=== PATIENT | female | born 2000 | race African-American/Black ===

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

== ENCOUNTER 2020-03-14 12:28 | Emergency (ER) | payer OTHER, MEDICAID ==
[~2020-03-14] VITALS: Ht 157.5 cm; Wt 56.7 kg
[~2020-03-14 12:28] MED LIST: FOLI1TAB6 PO; HYDR-4833 PO; IBUP100S11 PO
[2020-03-14 13:23] LABS: Urine Bacteria FEW /hpf (None Seen); Urine Blood 1+ /uL (Negative); Urine Specific Gravity 1.005 (1.001-1.035); Urine WBC 32 /hpf (0 - 5)
[2020-03-14 15:11] VITALS: BP 125/71
== END 2020-03-14 15:28 | disposition home or self-care (01) ==
LOC: ER 12:28
DX: N39.0 Urinary tract infection, site not specified (principal); Z90.49 Acquired absence of other specified parts of digestive tract
CPT/HCPCS: 81001; 81025

== ENCOUNTER 2020-10-10 16:27 | Inpatient (IN) | payer MEDICAID ==
[~2020-10-10] VITALS: Ht 160 cm; Wt 54.5 kg
[2020-10-10] MEDS ORDERED: SODIUM CHLORIDE 0.9% 1,000 ML IV ONE (16:45)
[2020-10-10] MEDS ORDERED: ONDANSETRON HCL 4 MG/2 ML VIAL IV ONE (16:45)
[2020-10-10] MEDS ORDERED: MORPHINE SULFATE 4 MG/ML SYR/VIAL IV ONE (16:45)
[2020-10-10 17:43] LABS: Hematocrit 19.6 % (36.0-46.0); Hemoglobin 7.1 g/dL (12.2-16.2); Mean Corpuscular Hemoglobin 37.1 pg (28.0-32.0); Mean Corpuscular Hgb Conc. 36.2 g/dL (32.0-36.0); Mean Corpuscular Volume 102.4 fL (80.0-100.0); Platelet Count (auto) 259 10^3/uL (140-450); Red Blood Cells 1.92 10^6/uL (4.0-5.20); White Blood Cell 10.5 10^3/uL (4.4-10.8)
[2020-10-10 17:50] LABS: Red Cell Distribution Width 20.9 % (11.8-14.3)
[2020-10-10 17:52] LABS: Basophils % (manual) 0 (0.0-2.0); Blast Cells 0; Eosinophils % (manual) 0 (0-7); Metamyelocytes % 0; Myelocytes % 0; Promyelocytes % 0; Reactive Lymphocytes 0
[2020-10-10 17:58] LABS: Albumin 3.5 g/dL (3.4-5.0); Calcium 8.6 mg/dL (8.5-10.1)
[2020-10-10 18:01] LABS: Bilirubin, Total 4.1 mg/dL (0.2-1.0); Total Protein 7.6 g/dL (6.4-8.2)
[2020-10-10 18:07] LABS: BUN/Creatinine Ratio 17.9
[2020-10-10 18:09] LABS: Potassium 2.9 mmol/L (3.5-5.1)
[2020-10-10 18:44] LABS: Band Neutrophils % (manual) 1; Lymphocytes % (manual) 12 (10.0-50.0); Monocytes % (manual) 10 (0-12)
[2020-10-10] MEDS ORDERED: ONDANSETRON HCL 4 MG/2 ML VIAL IV PRN (21:30)
[2020-10-10] MEDS ORDERED: ACETAMINOPHEN 325 MG TAB PO PRN (21:30)
[2020-10-10] MEDS ORDERED: MORPHINE SULFATE 4 MG/ML SYR/VIAL IV PRN (21:30)
[2020-10-10] MEDS ORDERED: POTASSIUM CHL 20 Meq TABLET PO ONE (21:30)
[2020-10-10 22:00] VITALS: BP 124/71
[2020-10-10 22:52] LABS: % Iron Saturation 22.4 % (15-50)
[2020-10-10] MEDS: FAMOTIDINE 20 MG TAB PO SCH (23:23)
[2020-10-10] MEDS: SODIUM CHLORIDE 0.9% 1,000 ML IV SCH (23:30)
[2020-10-11] VITALS (10 sets, daily range): BP systolic 112–128; BP diastolic 61–78
[2020-10-11] MEDS: TEMAZEPAM 15 MG CAP PO PRN (02:35)
[2020-10-11] MEDS: HYDROcodone-ACET 5/325MG TAB PO PRN ×3 (02:36→21:16)
[2020-10-11 07:23] LABS: Basophils # (auto) 0.1 10 ^3/uL (0-0.2); Basophils % (auto) 0.6 % (0.0-2.0); Eosinophils # (auto) 0.1 10 ^3/uL (0-0.8); Eosinophils % (auto) 0.5 % (0.0-7.0); Hematocrit 19.4 % (36.0-46.0); Lymphocytes # (auto) 1.3 10 ^3/uL (0.4-5.4); Mean Corpuscular Hemoglobin 36.7 pg (28.0-32.0); Mean Corpuscular Hgb Conc. 35.3 g/dL (32.0-36.0); Mean Corpuscular Volume 104.2 fL (80.0-100.0); Monocytes # (auto) 1.2 10 ^3/uL (0-1.3); Monocytes % (auto) 10.6 % (0.0-12.0); Neutrophils # (auto) 8.3 10 ^3/uL (1.6-8.6); Neutrophils % (auto) 76.3 % (37.0-80.0); Platelet Count (auto) 258 10^3/uL (140-450); Red Blood Cells 1.86 10^6/uL (4.0-5.20); Red Cell Distribution Width 19.9 % (11.8-14.3); White Blood Cell 10.9 10^3/uL (4.4-10.8)
[2020-10-11 07:24] LABS: Nucleated Red Blood Cells % 29.6 %
[2020-10-11 07:30] LABS: Hemoglobin 6.8 g/dL (12.2-16.2)
[2020-10-11 07:31] LABS: Potassium 3.2 mmol/L (3.5-5.1)
[2020-10-11 07:36] LABS: Albumin 3.2 g/dL (3.4-5.0); BUN/Creatinine Ratio 16.7; Bilirubin, Total 3.3 mg/dL (0.2-1.0); Calcium 8.2 mg/dL (8.5-10.1)
[2020-10-11] MEDS ORDERED: cefTRIAXone 1GM/50ML D5W 50 ML IV ONE (10:45)
[2020-10-11 11:08] LABS: Urine Bacteria NONE SEEN /hpf (None Seen); Urine Blood Negative /uL (Negative); Urine Specific Gravity 1.007 (1.001-1.035); Urine WBC 1 /hpf (0 - 5)
[2020-10-11] MEDS: SODIUM CHLORIDE 0.9% 1,000 ML IV SCH ×2 (11:37→23:20)
[2020-10-11] MEDS: FAMOTIDINE 20 MG TAB PO SCH ×2 (11:37→21:11)
[2020-10-11] MEDS ORDERED: POTASSIUM EFFERVESENT TAB 25 MEQ PO ONE (12:30)
[2020-10-11] MEDS: MORPHINE SULFATE 4 MG/ML SYR/VIAL IV PRN ×4 (13:04→23:06)
[2020-10-11] MEDS: hydroxyUREA 500 MG CAP PO SCH ×2 (15:48→21:10)
[2020-10-11 17:00] LABS: Hematocrit 21.2 % (36.0-46.0); Hemoglobin 7.5 g/dL (12.2-16.2)
[2020-10-12] MEDS: MORPHINE SULFATE 4 MG/ML SYR/VIAL IV PRN ×3 (02:31→09:24)
[2020-10-12 05:00] VITALS: BP 126/60
[2020-10-12 06:06] LABS: Hemoglobin 7.9 g/dL (12.2-16.2); Mean Corpuscular Hgb Conc. 35.7 g/dL (32.0-36.0); Mean Corpuscular Volume 100.9 fL (80.0-100.0); Platelet Count (auto) 286 10^3/uL (140-450); Red Blood Cells 2.18 10^6/uL (4.0-5.20); White Blood Cell 9.7 10^3/uL (4.4-10.8)
[2020-10-12 06:22] LABS: Red Cell Distribution Width 22.4 % (11.8-14.3)
[2020-10-12 07:01] LABS: Band Neutrophils % (manual) 0; Basophils % (manual) 0 (0.0-2.0); Blast Cells 0; Eosinophils % (manual) 0 (0-7); Metamyelocytes % 0; Myelocytes % 0; Promyelocytes % 0; Reactive Lymphocytes 0
[2020-10-12 07:04] LABS: Lymphocytes % (manual) 24 (10.0-50.0); Monocytes % (manual) 9 (0-12)
[2020-10-12 08:50] VITALS: BP 116/60
[2020-10-12] MEDS: cefTRIAXone 1GM/50ML D5W 50 ML IV SCH (09:28)
[2020-10-12] MEDS: AZITHROMYCIN 250 MG TAB PO SCH (09:29)
[2020-10-12] MEDS: hydroxyUREA 500 MG CAP PO SCH ×2 (09:29→21:50)
[2020-10-12] MEDS: FAMOTIDINE 20 MG TAB PO SCH ×2 (09:29→21:51)
[2020-10-12] MEDS: HYDROmorphone HCL 2 MG/ML VL IV PRN ×4 (12:17→22:29)
[2020-10-12 13:03] VITALS: BP 110/63
[2020-10-12] MEDS: HYDROcodone-ACET 5/325MG TAB PO PRN (13:10)
[2020-10-12] MEDS: SODIUM CHLORIDE 0.9% 1,000 ML IV SCH (13:25)
[2020-10-12 16:42] VITALS: BP 99/52
[2020-10-12 22:00] VITALS: BP 108/64
[2020-10-13] MEDS: HYDROmorphone HCL 2 MG/ML VL IV PRN ×6 (00:58→21:37)
[2020-10-13] MEDS: SODIUM CHLORIDE 0.9% 1,000 ML IV SCH ×2 (04:36→16:10)
[2020-10-13 05:00] VITALS: BP 106/65
[2020-10-13 08:00] VITALS: BP 125/72
[2020-10-13] MEDS: cefTRIAXone 1GM/50ML D5W 50 ML IV SCH (08:15)
[2020-10-13 09:00] VITALS: BP 125/12
[2020-10-13] MEDS: AZITHROMYCIN 250 MG TAB PO SCH (09:44)
[2020-10-13] MEDS: HYDROcodone-ACET 5/325MG TAB PO PRN (09:44)
[2020-10-13] MEDS: FAMOTIDINE 20 MG TAB PO SCH ×2 (09:44→21:39)
[2020-10-13] MEDS: hydroxyUREA 500 MG CAP PO SCH ×2 (09:44→21:39)
[2020-10-13 13:00] VITALS: BP 96/54
[2020-10-13 13:18] LABS: Hematocrit 22.8 % (36.0-46.0); Mean Corpuscular Hemoglobin 35.2 pg (28.0-32.0); Mean Corpuscular Hgb Conc. 34.9 g/dL (32.0-36.0); Mean Corpuscular Volume 100.8 fL (80.0-100.0); Platelet Count (auto) 376 10^3/uL (140-450); Red Blood Cells 2.26 10^6/uL (4.0-5.20); White Blood Cell 8.7 10^3/uL (4.4-10.8)
[2020-10-13 13:21] LABS: Red Cell Distribution Width 22.8 % (11.8-14.3)
[2020-10-13 13:22] LABS: Basophils % (manual) 0 (0.0-2.0); Blast Cells 0; Metamyelocytes % 0; Myelocytes % 0; Promyelocytes % 0; Reactive Lymphocytes 0
[2020-10-13 13:39] LABS: Band Neutrophils % (manual) 1; Eosinophils % (manual) 1 (0-7); Lymphocytes % (manual) 26 (10.0-50.0); Monocytes % (manual) 7 (0-12)
[2020-10-13 17:00] VITALS: BP 103/64
[2020-10-13 22:00] VITALS: BP 100/55
[2020-10-13] MEDS: TEMAZEPAM 15 MG CAP PO PRN (22:34)
[2020-10-14] MEDS: HYDROmorphone HCL 2 MG/ML VL IV PRN ×5 (01:53→19:52)
[2020-10-14 05:00] VITALS: BP 98/56
[2020-10-14] MEDS: SODIUM CHLORIDE 0.9% 1,000 ML IV SCH ×2 (05:30→19:26)
[2020-10-14] MEDS: cefTRIAXone 1GM/50ML D5W 50 ML IV SCH (07:52)
[2020-10-14 09:00] VITALS: BP 111/42
[2020-10-14] MEDS: AZITHROMYCIN 250 MG TAB PO SCH (09:51)
[2020-10-14] MEDS: hydroxyUREA 500 MG CAP PO SCH ×2 (09:52→21:37)
[2020-10-14] MEDS: FAMOTIDINE 20 MG TAB PO SCH ×2 (09:52→21:37)
[2020-10-14] MEDS: HYDROcodone-ACET 5/325MG TAB PO PRN ×3 (10:04→22:19)
[2020-10-14 13:00] VITALS: BP 105/58
[2020-10-14 22:00] VITALS: BP 117/62
[2020-10-14] MEDS: TEMAZEPAM 15 MG CAP PO PRN (22:33)
[2020-10-15] MEDS: HYDROmorphone HCL 2 MG/ML VL IV PRN ×4 (01:59→11:58)
[2020-10-15 05:00] VITALS: BP 130/66
[2020-10-15 07:08] LABS: White Blood Cell 5.6 10^3/uL (4.4-10.8)
[2020-10-15 07:10] LABS: Basophils # (auto) 0.1 10 ^3/uL (0-0.2); Eosinophils # (auto) 0.2 10 ^3/uL (0-0.8); Eosinophils % (auto) 3.4 % (0.0-7.0); Hematocrit 19.7 % (36.0-46.0); Lymphocytes # (auto) 1.9 10 ^3/uL (0.4-5.4); Mean Corpuscular Hemoglobin 36.8 pg (28.0-32.0); Mean Corpuscular Hgb Conc. 35.6 g/dL (32.0-36.0); Mean Corpuscular Volume 103.4 fL (80.0-100.0); Monocytes # (auto) 0.4 10 ^3/uL (0-1.3); Monocytes % (auto) 6.3 % (0.0-12.0); Neutrophils # (auto) 3.1 10 ^3/uL (1.6-8.6); Neutrophils % (auto) 55.3 % (37.0-80.0); Platelet Count (auto) 428 10^3/uL (140-450)
[2020-10-15 07:19] LABS: Albumin 2.3 g/dL (3.4-5.0); Anion Gap 7 (5-15); Blood Urea Nitrogen 3 mg/dL (7-18); Calcium 6.2 mg/dL (8.5-10.1); Carbon Dioxide 20 mmol/L (21-32); Chloride 118 mmol/L (98-107); Glucose 63 mg/dL (74-106); Magnesium 1.6 mg/dL (1.6-2.6); Sodium 145 mmol/L (136-145)
[2020-10-15 07:21] LABS: Alanine Aminotransferase 18 U/L (13-56); Alkaline Phosphatase 57 U/L (45-117); Aspartate Aminotransferase 19 U/L (15-37)
[2020-10-15 07:22] LABS: Potassium 2.9 mmol/L (3.5-5.1)
[2020-10-15 07:25] LABS: Red Cell Distribution Width 22.6 % (11.8-14.3)
[2020-10-15 07:43] VITALS: BP 120/70
[2020-10-15] MEDS: HYDROcodone-ACET 5/325MG TAB PO PRN ×3 (07:45→21:35)
[2020-10-15] MEDS ORDERED: POTASSIUM CHL 20 Meq TABLET PO ONE (07:45)
[2020-10-15 07:47] LABS: GFR African American 812 mL/min; GFR Non-African American 671 mL/min
[2020-10-15] MEDS ORDERED: SODIUM CHLORIDE 0.9% 1,000 ML IV SCH (08:45)
[2020-10-15 09:00] VITALS: BP 120/70
[2020-10-15] MEDS: hydroxyUREA 500 MG CAP PO SCH ×2 (09:23→20:30)
[2020-10-15] MEDS: FAMOTIDINE 20 MG TAB PO SCH ×2 (09:23→20:30)
[2020-10-15] MEDS ORDERED: ACETAMINOPHEN 325 MG TAB PO PRN (11:45)
[2020-10-15] MEDS: SODIUM CHLORIDE 0.9% 1,000 ML IV SCH (12:30)
[2020-10-15] MEDS ORDERED: MAGNESIUM SULFATE 1GM/100ML 100 ML IV ONE (12:30)
[2020-10-15 13:00] VITALS: BP 114/62
[2020-10-15] MEDS: KETOROLAC TROMETH 30 MG/ML 1ML VIAL IV PRN ×2 (13:36→20:26)
[2020-10-15 16:50] VITALS: BP 110/63
[2020-10-15 22:00] VITALS: BP 125/71
[2020-10-16] VITALS (10 sets, daily range): BP systolic 105–139; BP diastolic 50–70
[2020-10-16] MEDS: HYDROcodone-ACET 5/325MG TAB PO PRN ×3 (01:48→11:52)
[2020-10-16] MEDS: KETOROLAC TROMETH 30 MG/ML 1ML VIAL IV PRN ×2 (02:35→10:22)
[2020-10-16 08:08] LABS: Hematocrit 20.1 % (36.0-46.0); Hemoglobin 7.1 g/dL (12.2-16.2)
[2020-10-16 08:11] LABS: Potassium 3.4 mmol/L (3.5-5.1)
[2020-10-16 08:16] LABS: Magnesium 1.4 mg/dL (1.6-2.6)
[2020-10-16] MEDS: SODIUM CHLORIDE 0.9% 1,000 ML IV SCH (08:30)
[2020-10-16] MEDS ORDERED: POTASSIUM EFFERVESENT TAB 25 MEQ PO ONE (10:15)
[2020-10-16] MEDS: FAMOTIDINE 20 MG TAB PO SCH (10:20)
[2020-10-16] MEDS: hydroxyUREA 500 MG CAP PO SCH (10:20)
[2020-10-16] MEDS: MAGNESIUM SULFATE 1GM/100ML 100 ML IV SCH ×2 (11:46→12:56)
== END 2020-10-16 17:16 | disposition home or self-care (01) | DRG 662 ==
LOC: EDBD 16:27 → ER 16:27 → OVERFLOW 21:16 → WEST WING 10-11 15:05
PROVIDERS: ADMIT Nurse Practitioner; ATTEND Internal Medicine
PROC: 30233N1 Transfusion of Nonautologous Red Blood Cells into Peripheral Vein, Percutaneous Approach (ICD-10-PCS; principal; 2020-10-11)
DX: D57.00 Hb-SS disease with crisis, unspecified (principal); I82.612 Acute embolism and thrombosis of superficial veins of left upper extremity; K80.20 Calculus of gallbladder without cholecystitis without obstruction; E87.6 Hypokalemia; G89.4 Chronic pain syndrome; Z20.822 Contact with and (suspected) exposure to COVID-19; F12.90 Cannabis use, unspecified, uncomplicated; Z83.2 Family history of diseases of the blood and blood-forming organs and certain disorders involving the immune mechanism; Z90.49 Acquired absence of other specified parts of digestive tract
CPT/HCPCS: 36415; 36430; 71045; 76705; 80053; 81001; 81025; 83540; 83550; 83615; 83735; 84132; 84484; 84702; 85007; 85014; 85018; 85025; 85027; 85045; 86850; 86900; 86901; 86922; 87040; 87081; 87086; 87426; 93971; 96361; 96374; 96375; G0378; J0696; J1885; J2405

== ENCOUNTER 2021-01-09 02:19 | Emergency (ER) | payer MEDICAID ==
[~2021-01-09] VITALS: Ht 160 cm; Wt 54.4 kg
[2021-01-09] MEDS ORDERED: HYDROcodone-ACET 10/325MG TAB PO ONE (03:00)
[2021-01-09] MEDS ORDERED: SODIUM CHLORIDE 0.9% 1,000 ML IV ONE ×2 (03:00→06:45)
[2021-01-09] MEDS ORDERED: KETOROLAC TROMETH 30 MG/ML 1ML VIAL IV ONE ×2 (05:15→10:30)
[2021-01-09] MEDS ORDERED: MORPHINE SULFATE 4 MG/ML SYR/VIAL IV ONE (05:15)
[2021-01-09] MEDS ORDERED: ONDANSETRON HCL 4 MG/2 ML VIAL IV ONE (05:15)
[2021-01-09 05:56] LABS: Albumin 3.7 g/dL (3.4-5.0); BUN/Creatinine Ratio 16.3; Calcium 8.3 mg/dL (8.5-10.1); Potassium 3.9 mmol/L (3.5-5.1)
[2021-01-09 05:58] LABS: Bilirubin, Total 2.4 mg/dL (0.2-1.0); Total Protein 7.9 g/dL (6.4-8.2)
[2021-01-09 05:59] LABS: Basophils # (auto) 0.1 10 ^3/uL (0-0.2); Basophils % (auto) 0.9 % (0.0-2.0); Eosinophils # (auto) 0.1 10 ^3/uL (0-0.8); Eosinophils % (auto) 0.7 % (0.0-7.0); Hematocrit 25.5 % (36.0-46.0); Lymphocytes # (auto) 1.8 10 ^3/uL (0.4-5.4); Lymphocytes % (auto) 14.2 % (10.0-50.0); Mean Corpuscular Hemoglobin 38.6 pg (28.0-32.0); Mean Corpuscular Hgb Conc. 35.3 g/dL (32.0-36.0); Mean Corpuscular Volume 109.5 fL (80.0-100.0); Monocytes # (auto) 0.6 10 ^3/uL (0-1.3); Monocytes % (auto) 4.3 % (0.0-12.0); Neutrophils # (auto) 10.2 10 ^3/uL (1.6-8.6); Neutrophils % (auto) 79.9 % (37.0-80.0); Nucleated Red Blood Cells % 0.9 %; Red Blood Cells 2.33 10^6/uL (4.0-5.20); White Blood Cell 12.8 10^3/uL (4.4-10.8)
[2021-01-09 06:00] LABS: Red Cell Distribution Width 21.3 % (11.8-14.3)
[2021-01-09] MEDS ORDERED: MORPHINE SULFATE INJECTION 2 MG/ML SYRG IV ONE (06:45)
[2021-01-09 06:55] VITALS: BP 126/62
[2021-01-09] MEDS ORDERED: PROMETHAZINE HCL 25 MG/ML 1ML IV ONE (10:30)
== END 2021-01-09 11:48 | disposition left against medical advice (07) ==
LOC: EDBD 02:19 → ER 02:19
DX: D57.00 Hb-SS disease with crisis, unspecified (principal); Z90.49 Acquired absence of other specified parts of digestive tract
CPT/HCPCS: 36415; 80053; 81025; 85025; 85045; 96361; 96374; 96375; 96376; 99284; J1885; J2270; J2405; J2550; J7030

== ENCOUNTER 2021-03-28 18:44 | Emergency (ER) | payer MEDICAID ==
[~2021-03-28] VITALS: Ht 160 cm; Wt 52.2 kg
[2021-03-28] MEDS ORDERED: SODIUM CHLORIDE 0.9% 1,000 ML IV ONE ×2 (19:30→22:30)
[2021-03-28 19:35] LABS: Basophils # (auto) 0.1 10 ^3/uL (0-0.2); Hemoglobin 10.3 g/dL (12.2-16.2); Monocytes # (auto) 0.7 10 ^3/uL (0-1.3); Nucleated Red Blood Cells % 1.3 %; White Blood Cell 7.7 10^3/uL (4.4-10.8)
[2021-03-28 19:36] LABS: Eosinophils # (auto) 0.1 10 ^3/uL (0-0.8); Eosinophils % (auto) 1.8 % (0.0-7.0); Lymphocytes # (auto) 2.8 10 ^3/uL (0.4-5.4); Lymphocytes % (auto) 36.4 % (10.0-50.0); Mean Corpuscular Hemoglobin 35.5 pg (28.0-32.0); Mean Corpuscular Hgb Conc. 35.5 g/dL (32.0-36.0); Mean Corpuscular Volume 99.9 fL (80.0-100.0); Monocytes % (auto) 8.7 % (0.0-12.0); Neutrophils % (auto) 52.1 % (37.0-80.0); Red Blood Cells 2.91 10^6/uL (4.0-5.20)
[2021-03-28 19:50] LABS: Albumin 3.5 g/dL (3.4-5.0); BUN/Creatinine Ratio 12.5; Calcium 8.1 mg/dL (8.5-10.1)
[2021-03-28 19:54] LABS: Bilirubin, Total 1.5 mg/dL (0.2-1.0); Total Protein 7.5 g/dL (6.4-8.2)
[2021-03-28] MEDS ORDERED: ONDANSETRON HCL 4 MG/2 ML VIAL IV ONE (20:15)
[2021-03-28] MEDS ORDERED: KETOROLAC TROMETH 30 MG/ML 1ML VIAL IV ONE (20:15)
[2021-03-28] MEDS ORDERED: MORPHINE SULFATE INJECTION 2 MG/ML SYRG IV ONE (20:15)
[2021-03-28] MEDS ORDERED: MORPHINE SULFATE 4 MG/ML SYR/VIAL IV ONE (22:30)
[2021-03-29] MEDS ORDERED: SODIUM CHLORIDE 0.9% 500 ML IV ONE (01:30)
[2021-03-29] MEDS ORDERED: MORPHINE SULFATE INJECTION 2 MG/ML SYRG IV ONE (01:30)
[2021-03-29 09:52] LABS: Urine Bacteria FEW /hpf (None Seen); Urine Blood Negative /uL (Negative); Urine Mucus FEW (None Seen); Urine Specific Gravity 1.012 (1.001-1.035); Urine WBC 13 /hpf (0 - 5)
[2021-03-29 12:00] VITALS: BP 109/53
== END 2021-03-29 12:42 | disposition home or self-care (01) ==
LOC: ER 18:45
DX: D57.819 Other sickle-cell disorders with crisis, unspecified (principal); Z90.49 Acquired absence of other specified parts of digestive tract
CPT/HCPCS: 36415; 80053; 81001; 84484; 84702; 85025; 85045; 96361; 96374; 96375; 96376; 99285; J1885; J2270; J2405; J7030